=== PATIENT | male | born 1940 | race Caucasian/White ===

== ENCOUNTER 2023-04-06 12:02 | Observation (INO) ==
[2023-04-06] MEDS ORDERED: Lactated Ringers 1000 ml BAG 1,000 ML IV ONE ×2 (12:40→13:14)
[2023-04-06 13:06] LABS: ABS Basophils 0.1 10^3/uL (0.0-0.1); ABS Eosinophils 0.3 10^3/uL (0.0-0.5); ABS Monocytes 0.5 10^3/uL (0.0-1.1); ABS Neutrophils 4.6 10^3/uL (1.5-7.6); Eosinophil % 4.6 %; Hematocrit 31.8 % (38-53); Lymphocyte % 15.4 %; Mean Corpuscular Hemoglobin 31.5 pg (27-33); Mean Corpuscular Hgb Conc 34.5 g/dL (31-36); Mean Corpuscular Volume 91.4 fL (80-97); Mean Platelet Volume 7.7 fL (7.5-11.2); Platelet Count 186 10^3/uL (150-450); Red Blood Count 3.48 10^6/uL (4.06-5.63); Red Cell Distribution Width 13.1 % (12-17); White Blood Count 6.5 10^3/uL (3.6-10.2)
[2023-04-06 13:32] LABS: Albumin/Globulin Ratio 1.6 (1-3); C Reactive Protein 11.32 mg/L (<8.01); Calcium 7.6 mg/dL (8.6-10.3); Creatinine, Serum 1.87 mg/dL (0.67-1.17); Globulin 1.9 g/dL (2-4); Potassium 4.3 mmol/L (3.5-5.0); Total Bilirubin 0.7 mg/dL (0.2-1.0); Total Protein 4.9 g/dL (6.4-8.9); eGFR CKD-EPI 35.9 (>60)
[2023-04-06] MEDS ORDERED: Norepinephrine 4 MG/250mL D5W 4,000 MCG/250 ML BAG IV SCH (14:00)
[2023-04-06 14:35] LABS: High Sensitivity Troponin 1 Hr 23 pg/mL (<20)
[2023-04-06] MEDS ORDERED: Iodixanol (CONTRAST) 320 MG/ML 100 ML SDV IV ONE (15:04)
[2023-04-06] MEDS ORDERED: Hydrocortisone INJ 100 MG/2ML 2 ML VIAL IV ONE (16:32)
[2023-04-06 16:46] LABS: Urine Appearance Clear; Urine Bacteria Absent (Absent); Urine Bilirubin Negative (Negative); Urine Blood 1+ (Negative); Urine Color Yellow; Urine Glucose Negative (Negative); Urine Ketones Negative (Negative); Urine Nitrite Negative (Negative); Urine Protein Negative (Negative); Urine Red Blood Cell 3+(>10/hpf) (Absent); Urine Specific Gravity 1.012 (1.002-1.030); Urine Urobilinogen Negative (Negative); Urine White Blood Cell Trace(0-5/hpf) (Absent)
[2023-04-06] MEDS ORDERED: Albuterol HFA INHALER 8 gm MDI INH PRN ×2 (21:34→22:20)
[2023-04-06] MEDS ORDERED: NS 0.9% 1000 ml BAG 1,000 ML IV SCH (22:00)
[2023-04-06] MEDS ORDERED: Albuterol/Ipratropium NEB.SOL (2.5/0.5 MG) 3 ML NEB.SOLN INH PRN (22:14)
[2023-04-06] MEDS: Enoxaparin 40 MG/0.4 ML SYR SUBCUT SCH (22:26)
[2023-04-06] MEDS: cefTRIAXone 1 gm/50 mL D5W 1 GM/50 ML BAG IV SCH (22:26)
[2023-04-07] MEDS: Azithromycin 500 mg/250 ml NS 500 MG/250 ML BAG IVPB SCH ×2 (00:33→22:43)
[2023-04-07] MEDS ORDERED: Cosyntropin 0.25 MG VIAL IV ONE (06:01)
[2023-04-07 06:49] LABS: Albumin 3.1 g/dL (3.2-5.2); Albumin/Globulin Ratio 1.6 (1-3); Calcium 7.9 mg/dL (8.6-10.3); Creatinine, Serum 1.45 mg/dL (0.67-1.17); Magnesium 1.7 mg/dL (1.9-2.7); Potassium 3.9 mmol/L (3.5-5.0); Total Bilirubin 0.6 mg/dL (0.2-1.0); Total Protein 5.1 g/dL (6.4-8.9); eGFR CKD-EPI 48.7 (>60)
[2023-04-07 06:58] LABS: ABS Basophils 0.1 10^3/uL (0.0-0.1); ABS Eosinophils 0.2 10^3/uL (0.0-0.5); ABS Lymphocytes 1.6 10^3/uL (1.0-4.8); ABS Monocytes 0.7 10^3/uL (0.0-1.1); ABS Neutrophils 4.4 10^3/uL (1.5-7.6); Eosinophil % 3.1 %; Hematocrit 33.4 % (38-53); Hemoglobin 11.4 g/dL (13.2-16.3); Lymphocyte % 23.2 %; Mean Corpuscular Hemoglobin 30.7 pg (27-33); Mean Corpuscular Volume 90.5 fL (80-97); Mean Platelet Volume 7.9 fL (7.5-11.2); Nucleated Red Blood Cells % 0.1 %/100WBC (0.0-0.8); Platelet Count 215 10^3/uL (150-450); Red Cell Distribution Width 12.9 % (12-17); White Blood Count 7.1 10^3/uL (3.6-10.2)
[2023-04-07] MEDS: Tiotropium Brom/Olodaterol MDI (ACUTE) INH SCH (09:15)
[2023-04-07] MEDS: Venlafaxine XR 75 mg PO SCH (09:18)
[2023-04-07] MEDS: Cholecalciferol (VIT D3) 1,000 unit TAB PO SCH (09:18)
[2023-04-07 15:20] LABS: HIV 4th Generation Nonreactive (Nonreactive)
[2023-04-07] MEDS: Enoxaparin 40 MG/0.4 ML SYR SUBCUT SCH (21:36)
[2023-04-07] MEDS: cefTRIAXone 1 gm/50 mL D5W 1 GM/50 ML BAG IV SCH (21:36)
[2023-04-08 08:14] LABS: ABS Lymphocytes 1.2 10^3/uL (1.0-4.8); ABS Monocytes 0.7 10^3/uL (0.0-1.1); ABS Neutrophils 4.9 10^3/uL (1.5-7.6); Eosinophil % 0.1 %; Hematocrit 33.5 % (38-53); Hemoglobin 11.5 g/dL (13.2-16.3); Lymphocyte % 18.1 %; Mean Corpuscular Hemoglobin 31.2 pg (27-33); Mean Corpuscular Hgb Conc 34.4 g/dL (31-36); Mean Corpuscular Volume 90.7 fL (80-97); Mean Platelet Volume 7.5 fL (7.5-11.2); Platelet Count 224 10^3/uL (150-450); Red Cell Distribution Width 13.1 % (12-17); White Blood Count 6.9 10^3/uL (3.6-10.2)
[2023-04-08 08:29] LABS: C Reactive Protein 14.46 mg/L (<8.01); Calcium 8.4 mg/dL (8.6-10.3); Creatinine, Serum 1.44 mg/dL (0.67-1.17); Potassium 3.8 mmol/L (3.5-5.0); eGFR CKD-EPI 49.1 (>60)
[2023-04-08] MEDS: Venlafaxine XR 75 mg PO SCH (08:52)
[2023-04-08] MEDS: Cholecalciferol (VIT D3) 1,000 unit TAB PO SCH (08:52)
[2023-04-08] MEDS: Tiotropium Brom/Olodaterol MDI (ACUTE) INH SCH (08:53)
[2023-04-08 12:22] VITALS: BP 171/93
== END 2023-04-08 13:10 | disposition short-term general hospital (02) ==
LOC: EDHOLD 12:02 → ED 12:02 → SUATTDRO 19:49 → MEDTELE 21:07
PROVIDERS: ADMIT Internal Medicine; ATTEND Internal Medicine